=== PATIENT | male | born 1980 | race African-American/Black ===

== ENCOUNTER 2017-01-08 19:23 | Emergency (ER) | payer OTHER ==
--- NOTE | 2017-01-08 19:39 | ED Physician Documentation ---
PD HPI LOWER EXT INJURY - Stated complaint Stated Complaint: L LEG PX - Chief complaint Chief Complaint: Ext Problem - History obtained from History obtained from: Patient - History of Present Illness PD HPI LOW EXT INJURY LOCATION: Other (He had a bunionectomy on December 13. He went back to work this week and around Monday started to feel a pulling in the left calf and wonders if he might have a blood clot. He has never had a blood clot. No chest pain or trouble breathing. Pain is minimal at rest.) Review of Systems Constitutional: denies: Fever, Chills Cardiac: denies: Chest pain / pressure, Palpitations Respiratory: denies: Dyspnea, Cough GI: denies: Abdominal Pain PD PAST MEDICAL HISTORY - Past Medical History Past Medical History: No - Past Surgical History Past Surgical History: Yes Ortho: Other - Present Medications Home Medications: Ambulatory Orders Medication Instructions Recorded Confirmed HYDROcod/ACETAM 5/325 [[place] 5/325] 1 - 2 ea PO Q6H PRN #15 tablet 06/03/15 Ibuprofen 600 mg PO Q6HR PRN #30 tablet 06/03/15 Enoxaparin [Lovenox] 100 mg SUBQ Q12H #10 syringe 01/08/17 Warfarin [Coumadin] 5 mg PO DAILY #30 tablet 01/08/17 - Allergies Allergies/Adverse Reactions: Allergies Allergy/AdvReac Type Severity Reaction Status Date / Time No Known Drug Allergies Allergy Verified 06/03/15 22:16 - Social History Does the pt smoke?: No Smoking Status: Never smoker Does the pt drink ETOH?: Yes Does the pt have substance abuse?: No - Immunizations Immunizations are current?: Yes - POLST Patient has POLST: No PD ED PE NORMAL - Vitals Vital signs reviewed: Yes - General General: Alert and oriented X 3, No acute distress - Derm Derm: Normal color, Warm and dry - Extremities Extremities: Other (Mild tenderness of the left calf, but no asymmetry or signs of infection. There is a bandage on the medial left foot.) - Neuro Neuro: Alert and oriented X 3, Normal speech - Psych Psych: Normal mood, Normal affect Results - Vitals Vitals: Vital Signs - 24 hr 01/08/17 01/08/17 19:29 22:01 Temperature 36.4 C L 36.2 C L Heart Rate 69 64 Respiratory 18 18 Rate Blood Pressure 144/80 H 137/77 H O2 Saturation 97 98 Oxygen O2 Source Room air - Labs Labs: Laboratory Tests 01/08/17 01/08/17 19:48 19:48 WBC 6.7 RBC 5.37 Hgb 14.4 Hct 41.7 L MCV 77.7 L MCH 26.8 L MCHC 34.5 RDW 13.2 Plt Count 239 MPV 7.5 Neut # 3.8 Lymph # 2.2 [place] # 0.4 Eos # 0.2 Baso # 0.1 Absolute Nucleated RBC 0.00 Nucleated RBCs 0.0 Sodium 138 Potassium 3.5 Chloride 103 Carbon Dioxide 27 Anion Gap 8.0 BUN 12 Creatinine 1.1 Estimated GFR (MDRD) 92 Glucose 112 H Calcium 9.2 - Rads (name of study) LLE duplex Radiology: Discussed with rads, See rad report PD MEDICAL DECISION MAKING - ED course ED course: He has a small postoperative DVT. He is a [place] pt, so will be impossible to contact his PCM tonight. He was started on Lovenox and will be transitioned to Coumadin. I advised him that it would probably be 3-6 months total, to follow- up with his PCM on Monday as is already scheduled. He was counseled about Coumadin, specificallyThe relationship between Coumadin and dietary vitamin K, the need for frequent checks, the need to look at his stools and to return immediately if he hits his head. Departure - Departure Disposition: Home, Self Care Clinical Impression: DVT (deep venous thrombosis) Qualifiers: DVT location: lower extremity Affected thrombotic vein of extremity: unspecified lower extremity distal vein Laterality: left Chronicity: acute Qualified Code(s): I82.4Z2 - Acute embolism and thrombosis of unspecified deep veins of left distal lower extremity Condition: Good Record reviewed to determine appropriate education?: Yes Instructions: ED DVT, Coumadin Prescriptions: Warfarin [Coumadin] 5 mg PO DAILY #30 tablet Enoxaparin [Lovenox] 100 mg SUBQ Q12H #10 syringe Comments: FOLLOWUP WITH YOUR DOCTOR ON MONDAY SCHEDULED. Your blood pressure was elevated today on check into the emergency department. This does not mean that you have hypertension, it is a common phenomenon to come to the emergency department and have elevated blood pressure. I recommend that she see her primary care physician within the week to have it rechecked when you are feeling better. Discharge Date/Time: 01/08/17 22:01
[2017-01-08 20:02] LABS: BASOPHILS # (AUTO) 0.1 10^3/uL (0.0-0.1); BASOPHILS % (AUTO) 1.1 %; EOSINOPHILS # (AUTO) 0.2 10^3/uL (0.0-0.7); EOSINOPHILS % (AUTO) 2.9 %; HCT - HEMATOCRIT 41.7 % (42.0-52.0); HGB - HEMOGLOBIN 14.4 g/dL (14.0-18.0); LYMPHOCYTES # (AUTO) 2.2 10^3/uL (1.5-3.5); LYMPHOCYTES % (AUTO) 33.2 %; MEAN CORPUSCULAR HEMOGLOBIN 26.8 pg (27.0-31.0); MEAN CORPUSCULAR HGB CONC 34.5 g/dL (32.0-36.0); MEAN CORPUSCULAR VOLUME 77.7 fL (80.0-94.0); MEAN PLATELET VOLUME 7.5 fL (7.4-11.4); MONOCYTES # (AUTO) 0.4 10^3/uL (0.0-1.0); MONOCYTES % (AUTO) 5.5 %; NEUTROPHILS # (AUTO) 3.8 10^3/uL (1.5-6.6); NEUTROPHILS % (AUTO) 57.3 %; RED BLOOD COUNT 5.37 10^6/uL (4.70-6.10); RED CELL DISTRIBUTION WIDTH 13.2 % (12.0-15.0); UNCORRECTED WHITE BLOOD COUNT 6.7 x10^3/uL; WHITE BLOOD COUNT 6.7 x10^3/uL (4.8-10.8)
[2017-01-08 20:11] LABS: CALCIUM 9.2 mg/dL (8.5-10.3); CREATININE 1.1 mg/dL (0.6-1.2); POTASSIUM 3.5 mmol/L (3.5-5.0)
--- NOTE | 2017-01-08 21:25 | Ultrasound Preliminary Report ---
Exam: US Duplex Ext Veins Left IMPRESSION: Positive for left upper calf DVT in the posterior tibial vein. Lower posterior tibial vei n is patent. No other DVT. RADIA The above critical findings were discussed with Bassam by Dr. Yoan Napoles at 21:22 hrs on 01/08/17. SITE ID: [id number]
--- NOTE | 2017-01-08 21:28 | Ultrasound Report ---
EXAM: LEFT LOWER EXTREMITY VENOUS ULTRASOUND EXAM DATE: 01/08/2017 08:58 PM. CLINICAL HISTORY: Post op calf pain. COMPARISON: None. TECHNIQUE: Real-time sonographic vascular imaging was performed by the pattern generator operator through the lower extremity utilizing both color-flow and Doppler spectral analysis. Multiple outbound telemarketing representative static flor ges were saved for review. FINDINGS: Common Femoral Vein (CFV): Normal. CFV-GSV Junction: Normal. Profunda Femoral Vein (PFV): Normal. Femoral Vein (FV) Prox: Normal. Femoral Vein (FV) Mid: Normal. Femoral Vein (FV) Dist: Normal. Popliteal Vein: Normal. Posterior Tibial Veins: There is a small segment of DVT in the upper to mid left posterior tibial vei n. The inferior posterior tibial vein is patent. Peroneal Veins: Normal. Contralateral Side CFV: Normal. Other: None. IMPRESSION: Positive for left upper calf DVT in the posterior tibial vein. Lower posterior tibial vei n is patent. No other DVT. RADIA The above critical findings were discussed with Bassam by Dr. Yoan Napoles at 21:22 hrs on 01/08/17. Referring Provider Line: [phone] SITE ID: [id number]
[2017-01-08] MEDS ORDERED: ENOXAPARIN 100 MG/ML SYRINGE SUBQ STA (21:31)
[2017-01-08] MEDS ORDERED: ENOXAPARIN 100 MG/ML SYRINGE SUBQ ONE (21:45)
[2017-01-08 22:03] VITALS: BP 137/77
== END 2017-01-08 22:01 | disposition home or self-care (01) ==
LOC: ED 19:23
DX: I82.4Z2 Acute embolism and thrombosis of unspecified deep veins of left distal lower extremity (principal)
CPT/HCPCS: 36415; 80048; 85025; 93971; 99282; 99283; J1650